=== PATIENT | female | born 2000 | race Caucasian/White ===

== ENCOUNTER 2022-03-16 02:12 | Inpatient (IN) | payer OTHER ==
[~2022-03-16] VITALS: Ht 162.6 cm; Wt 89.4 kg
[2022-03-16 02:48] LABS: AMPHETAMINES NEGATIVE (NEGATIVE); BARBITURATES NEGATIVE (NEGATIVE); ECSTASY (MDMA) NEGATIVE (NEGATIVE); MARIJUANA (THC) NEGATIVE (NEGATIVE); METHADONE NEGATIVE (NEGATIVE); OPIATES NEGATIVE (NEGATIVE); OXYCODONE NEGATIVE (NEGATIVE)
[2022-03-16 02:49] LABS: BILIRUBIN NEGATIVE (NEGATIVE); BLOOD NEGATIVE Ery/uL (NEGATIVE); CLARITY CLEAR (CLEAR); COLOR YELLOW (YELLOW); GLUCOSE (U) NORMAL (NORMAL); LEUKOCYTES 3+ Leu/uL (NEGATIVE); NITRITE NEGATIVE (NEGATIVE); PROTEIN NEGATIVE (NEGATIVE); SPECIFIC GRAVITY 1.015 (1.001-1.030); UROBILINOGEN 0.2 mg/dL (0.2-1.0)
[2022-03-16 02:51] LABS: AMORPHOUS URATES CRYSTALS TRACE; BACTERIA 2+; MUCOUS TRACE; URINARY WBC 20-50
[2022-03-16 09:20] LABS: HCT 34.8 % (37.0-47.0); MCH 27.7 pg (25.0-31.0); MCHC 31.6 g/dL (32.0-36.0); MCV 87.7 fL (78.0-100.0); MPV 9.5 fL (6.0-9.5); RBC 3.97 M/uL (4.20-5.40); RDW 12.5 % (11.5-14.0); WBC 16.9 K/uL (4.0-10.5)
[2022-03-17 05:37] LABS: HCT 30.1 % (37.0-47.0); HGB 9.7 g/dl (12.5-16.0); MCH 28.3 pg (25.0-31.0); MCHC 32.2 g/dL (32.0-36.0); MCV 87.8 fL (78.0-100.0); MPV 9.1 fL (6.0-9.5); RBC 3.43 M/uL (4.20-5.40); RDW 12.7 % (11.5-14.0); WBC 22.7 K/uL (4.0-10.5)
== END 2022-03-18 17:46 | disposition home or self-care (01) | DRG 806 ==
LOC: FOB 02:12 → FOD 02:12 → FOB 08:22
PROVIDERS: ADMIT Obstetrics & Gynecology
PROC: 10E0XZZ Delivery of Products of Conception, External Approach (ICD-10-PCS; principal; 2022-03-16)
DX: O99.02 Anemia complicating childbirth (principal); D62 Acute posthemorrhagic anemia; Z37.0 Single live birth; Z3A.37 37 weeks gestation of pregnancy; D50.9 Iron deficiency anemia, unspecified; O99.824 Streptococcus B carrier state complicating childbirth; Z79.899 Other long term (current) drug therapy
CPT/HCPCS: 36415; 80305; 81001; 86850; 86900; 86901; J0595; J1200; J2540; J2916; J7120